=== PATIENT | female | born 1980 | race African-American/Black ===

== ENCOUNTER 2018-03-16 10:46 | Emergency (ER) | payer MEDICAID ==
[~2018-03-16] VITALS: Ht 149.9 cm; Wt 83.5 kg
[2018-03-16 11:59] VITALS: BP 138/82
== END 2018-03-16 12:03 | disposition home or self-care (01) ==
LOC: ED 12:00
DX: S46.811A Strain of other muscles, fascia and tendons at shoulder and upper arm level, right arm, initial encounter (principal); S46.812A Strain of other muscles, fascia and tendons at shoulder and upper arm level, left arm, initial encounter; F17.200 Nicotine dependence, unspecified, uncomplicated; V49.49XA Driver injured in collision with other motor vehicles in traffic accident, initial encounter; Y93.89 Activity, other specified; Y92.89 Other specified places as the place of occurrence of the external cause; Y99.8 Other external cause status
CPT/HCPCS: 99282

== ENCOUNTER 2020-09-07 09:02 | Emergency (ER) | payer SELFPAY ==
[~2020-09-07] VITALS: Ht 149.9 cm; Wt 88.9 kg
[2020-09-07 10:01] LABS: MEAN CORPUSCULAR HEMOGLOBIN 28.1 pg (27.0-34.8); MEAN CORPUSCULAR HGB CONC 33.4 g/dL (32.4-35.8); MEAN PLATELET VOLUME 7.9 fL (7.4-10.4); PLATELET COUNT 274 x10^3/uL (130-400); RED BLOOD COUNT 5.14 x10^6/uL (3.82-5.3); RED CELL DISTRIBUTION WIDTH 13.1 % (9.6-15.2)
[2020-09-07 10:13] LABS: ALBUMIN 3.6 g/dL (3.4-5.0); CALCIUM 8.6 mg/dL (8.5-10.1); CHLORIDE 110 mmol/L (98-107); CREATININE 0.92 mg/dL (0.55-1.02)
--- NOTE | 2020-09-07 10:16 | NUR ---
PT RESTING IN BED, NO DISTRESS, ON MONITORS. VSS. PT UP TO RR FOR U/A, COLLECTED AND SENT TO LAB. PT AWAITING ALL LAB RESULTS. CONT TO MONITOR.
[2020-09-07 10:18] LABS: TROPONIN I < 0.015 ng/mL (0.000-0.045)
[2020-09-07 10:20] LABS: MD YES
[2020-09-07 10:23] LABS: <PLATELET ESTIMATE> ADEQUATE; <PLT MORPHOLOGY> NORMAL PLT MORPH; <RBC MORPHOLOGY> NORMAL; BASOS#(MANUAL) 0.05 x10^3/uL (0-0.1); BASOS% (MANUAL) 1 % (0-1); EOS#(MANUAL) 0.05 x10^3/uL (0.0-0.4); EOS% (MANUAL) 1 % (1-7); LYMPH#(MANUAL) 2.21 x10^3/uL (1-3.4); LYMPHS% (MANUAL) 49 % (22-44); MONOS#(MANUAL) 0.27 x10^3/uL (0.3-2.7); MONOS% (MANUAL) 6 % (2-9); SEG#(MANUAL) 1.94 x10^3/uL (1.8-6.8); SEGS% (MANUAL) 43 % (42-75)
[2020-09-07 10:32] LABS: MICROSCOPIC NOT IND
[2020-09-07 10:34] LABS: ANION GAP 8 mmol/L (5-15)
[2020-09-07 11:10] VITALS: BP 132/81
== END 2020-09-07 11:12 | disposition home or self-care (01) ==
LOC: ED 10:49
DX: R55 Syncope and collapse (principal); F17.200 Nicotine dependence, unspecified, uncomplicated
CPT/HCPCS: 36415; 71045; 80048; 81003; 82040; 82962; 84443; 84484; 84703; 85025; 93005; 99285

== ENCOUNTER 2020-12-30 07:45 | Emergency (ER) | payer OTHER ==
[~2020-12-30] VITALS: Ht 149.9 cm; Wt 84.5 kg
--- NOTE | 2020-12-30 07:56 | NUR ---
NIL X1.
--- NOTE | 2020-12-30 08:15 | NUR ---
PT AMBULATORY TO ROOM FROM TRIAGE, CHANGED INTO GOWN, CALL LIGHT WITHIN [facility], MONITORS IN PLACE. PT C/O LOWER ABD PAIN SINCE LAST NIGHT.
[2020-12-30] MEDS ORDERED: ONDANSETRON 2MG/ML, 2ML IVPush ONE (08:30)
[2020-12-30] MEDS ORDERED: MORPHINE SULFATE 4 MG/ML, 1ML IVPush PRN (08:30)
[2020-12-30] MEDS ORDERED: SODIUM CHLORIDE FLUSH 10ML SYR IVF ONE (08:30)
[2020-12-30] MEDS ORDERED: ONDANSETRON 2MG/ML, 2ML ONE (08:32)
[2020-12-30] MEDS ORDERED: MORPHINE SULFATE 4 MG/ML, 1ML ONE (08:32)
--- NOTE | 2020-12-30 08:48 | NUR ---
report to DEBBIE Tomas
--- NOTE | 2020-12-30 08:50 | NUR ---
REPORT FROM ANGELITA, ASSUME CARE OF PT AT THIS TIME.
[2020-12-30 08:57] LABS: BASOPHILS % (AUTO) 1 % (0-1); EOSINOPHILS % (AUTO) 2 % (1-7); LYMPHOCYTES % (AUTO) 17 % (22-44); MEAN CORPUSCULAR HEMOGLOBIN 28.5 pg (27.0-34.8); MEAN CORPUSCULAR HGB CONC 33.7 g/dL (32.4-35.8); MEAN PLATELET VOLUME 8.1 fL (7.4-10.4); MONOCYTES % (AUTO) 9 % (2-9); NEUTROPHILS % (AUTO) 71 % (42-75); PLATELET COUNT 310 x10^3/uL (130-400); RED BLOOD COUNT 5.05 x10^6/uL (3.82-5.3); RED CELL DISTRIBUTION WIDTH 13.4 % (9.6-15.2)
--- NOTE | 2020-12-30 09:05 | NUR ---
URINE COLLECTED/SENT TO LAB. PT TO US.
[2020-12-30 09:07] LABS: ALANINE AMINOTRANSFERASE 15 U/L (12-78); ANION GAP 5 mmol/L (5-15); CALCIUM 8.6 mg/dL (8.5-10.1); CHLORIDE 106 mmol/L (98-107); CREATININE 0.93 mg/dL (0.55-1.02)
[2020-12-30 09:12] LABS: ALKALINE PHOSPHATASE 80 U/L (45-117); BILIRUBIN,TOTAL 0.3 mg/dL (0.2-1.0); TOTAL PROTEIN 7.9 g/dL (6.4-8.2)
[2020-12-30 09:24] LABS: MICROSCOPIC AUTO
[2020-12-30 09:58] VITALS: BP 166/107
--- NOTE | 2020-12-30 10:01 | NUR ---
US RESULTS BACK, PT FOR RECHECK. PT STATES PAIN BETTER, NO N/V. VS UPDATED IN COMPUTER.
== END 2020-12-30 10:40 | disposition home or self-care (01) ==
LOC: ED 08:39
DX: N30.00 Acute cystitis without hematuria (principal); R10.30 Lower abdominal pain, unspecified; D25.1 Intramural leiomyoma of uterus
CPT/HCPCS: 36415; 76830; 80053; 81001; 83690; 84703; 85025; 87086; 96374; 96375; 99284; J2270; J2405